=== PATIENT | female | born 1945 | race Caucasian/White ===

== ENCOUNTER 2016-12-13 08:35 | Outpatient (CLI) | payer OTHER ==
--- NOTE | 2016-12-13 09:29 | Ultrasound Report ---
Left mammogram and left breast ultrasound: Based on recent screening examination an area of asymmetry is again identified in the CC projection and questionably in the lateral view. Spot compression imaging demonstrates an irregular shaped area of slightly heterogeneous density. No architectural distortion or calcifications. Much better identified on the CC projection. Global left breast ultrasound is unremarkable. Impression: Probably benign left breast asymmetry. Recommendation: Repeat mammogram in 6 months to confirm stability. This is been indicated to the patient. BI-RADS CATEGORY: 3 = Probably benign ACR BI-RADS MAMMOGRAPHIC CODES: 0 = Needs additional imaging evaluation; 1 = Negative; 2 = Benign; 3 = Probably benign; 4 = Suspicious; 5 = Malignant; 6 = Known biopsy-proven malignancy COMMENT: 1. Dense breast tissue, i.e., adenosis, fibrocystic changes, etc., may obscure an underlying neoplasm. 2. Approximately 10% of cancers are not detected with mammography. 3. A negative mammography report should not delay biopsy if a clinically suspicious mass is present.
== END 2016-12-13 08:36 | disposition home or self-care (01) ==
LOC: MAMMO 08:35
PROVIDERS: ATTEND Internal Medicine
DX: N64.89 Other specified disorders of breast (principal)
CPT/HCPCS: 76642; G0206

== ENCOUNTER 2017-03-19 08:50 | Outpatient (CLI) | payer OTHER ==
--- NOTE | 2017-03-19 10:33 | Mammography Report ---
BONE DENSITY STUDY: DEFINITIONS: BMD = Bone Mineral Density T-score = BMD related to mean peak bone mass of young adult (mean expressed in Standard Deviation) Z-score = Age matched BMD expressed in SD World Health Organization (WHO) Diagnostic Criteria Normal T-score > -1 SD Osteopenia T-score between -1 and -2.4 SD Osteoporosis T-score -2.5 SD or below FINDINGS: The weighted average BMD of lumbar spine L1-L4 is 1.090 with a T-score of 0.4. The weighted average BMD of hip is 0.784 with a T-score of -1.3. IMPRESSION: The patient's T-score is diagnostic for osteopenia and average relative risk for fracture. NOTE: BMD is not the only risk factor for fracture; also consider factors such as the patient's age, risk of falling, previous osteoporotic fracture, family history of osteoporotic fractures, current smoker, and low body weight. Silva's triangle is a region of interest in femur, predominantly of trabecular bone. It is not a true anatomic site, and [facility] does not recommend its use clinically.
--- NOTE | 2017-03-19 11:30 | XRay Report ---
RIGHT HAND, 3 views: History: Joint pain. The bony architecture is intact. Bony alignment is normal. No soft tissue abnormalities are seen. Minimal osteoarthritic changes are noted throughout the fingers. No erosive joint pathology. IMPRESSION: Minimal osteoarthritic changes.
== END 2017-03-19 08:51 | disposition home or self-care (01) ==
LOC: MAMMO 08:50
PROVIDERS: ATTEND Internal Medicine
DX: M85.88 Other specified disorders of bone density and structure, other site (principal); M19.041 Primary osteoarthritis, right hand
CPT/HCPCS: 77080

== ENCOUNTER 2017-09-16 09:16 | Outpatient (CLI) | payer OTHER ==
--- NOTE | 2017-09-16 11:08 | XRay Report ---
RIGHT HAND, 3 views: History: Pain in right hand Mild osteopenia is suspected. Minor osteoarthritic changes are identified. No evidence for fracture, bony erosion or bone lesion. The soft tissues are within normal limits. IMPRESSION: Osteopenia. Osteoarthritis.
--- NOTE | 2017-09-16 11:08 | XRay Report ---
RIGHT WRIST, 4 VIEWS: History: wrist pain, injury. Mild osteopenia is suspected. There are mild osteoarthritic changes. No evidence for fracture, dislocation or ligamentous injury. The soft tissues are unremarkable. IMPRESSION: Mild osteopenia. Osteoarthritis.
== END 2017-09-16 09:17 | disposition home or self-care (01) ==
LOC: XRAY 09:16
PROVIDERS: ATTEND Internal Medicine
DX: M19.041 Primary osteoarthritis, right hand (principal); M25.531 Pain in right wrist